=== PATIENT | female | born 1985 | race American Indian/Alaskan Native ===

== ENCOUNTER 2016-05-15 17:38 | Outpatient (CLI) | payer MEDICAID ==
[2016-05-15 19:17] VITALS: BP 118/72
== END 2016-05-15 19:49 | disposition home or self-care (01) ==
LOC: TRG 17:38
PROVIDERS: ATTEND Obstetrics & Gynecology
DX: O77.9 Labor and delivery complicated by fetal stress, unspecified (principal); O47.1 False labor at or after 37 completed weeks of gestation; Z3A.37 37 weeks gestation of pregnancy

== ENCOUNTER 2016-05-29 02:37 | Inpatient (IN) | payer MEDICAID ==
[2016-05-29] MEDS ORDERED: BRETHINE IVP PRN (03:18)
[2016-05-29] MEDS ORDERED: POLYCILLIN/NS 2 GM/100 ML 2 GM/100 ML BAG IV ONE (03:18)
[2016-05-29] MEDS ORDERED: ePHEDrine SULFATE IV PRN (03:18)
[2016-05-29] MEDS ORDERED: BRETHINE SUB-Q PRN (03:18)
[2016-05-29] MEDS ORDERED: MINERAL OIL PO PRN (03:18)
[2016-05-29] MEDS ORDERED: LACTATED RINGERS 1,000 ML IV SCH (04:00)
[2016-05-29 04:45] LABS: Hematocrit 41.5 % (30.3-42.9); Hemoglobin 13.2 gm/dl (10.1-14.3); Mean Corpuscular HGB Conc 32 % (30-34); Mean Corpuscular Hemoglobin 26 pg (28-32); Mean Corpuscular Volume 83 fl (79-97); Platelet Count 223 K/mm3 (140-440); Red Blood Count 5.02 M/mm3 (3.65-5.03); Red Cell Distribution Width 17.1 % (13.2-15.2)
[2016-05-29] MEDS: SUBLIMAZE IV PRN ×2 (05:10→06:34)
--- NOTE | 2016-05-29 06:46 | History and Physical Report ---
History of Present Illness Date of examination: 05/29/16 Date of admission: 05/29/16 04:36 Chief complaint: My water broke and I am having contractions History of present illness: 31 yo , now 39 + weeks presents in active labor with SROM at 0200. records not available. HX of CHTN but not on meds with this . States she is GBS+. Past History Past Medical History: hypertension Past Surgical History: no surgical history Social history: no significant social history - Obstetrical History Expected Date of Delivery: 05/30/16 Actual Gestation: 39 Week(s) 6 Day(s) : 5 Para: 2 Hx # Term Pregnancies: 2 Number of Living Children: 2 Medications and Allergies Allergies Allergy/AdvReac Type Severity Reaction Status Date / Time No Known Allergies Allergy Unverified 05/29/16 02:55 Home Medications Medication Instructions Recorded Confirmed Last Taken Type No Known Home Medications [No 05/29/16 05/29/16 Unknown History Reported Home Medications] Active Meds: Active Medications Fentanyl (Sublimaze) 100 mcg IV Q2H PRN PRN Reason: Labor Pain Last Admin: 05/29/16 06:34 Dose: 100 mcg Ampicillin Sodium (Polycillin/Ns 1 Gm/50 Ml) 1 gm in 50 mls @ 100 mls/hr IV Q4HR JEFF PRN Reason: Protocol Lactated Ringer's (Lactated Ringers) 1,000 mls @ 125 mls/hr IV DIRECT JEFF Last Admin: 05/29/16 04:46 Dose: 125 mls/hr Oxytocin/Sodium Chloride (Pitocin/Ns 20 Unit/1000ml Drip) 20 unit in 1,000 mls @ 125 mls/hr IV DIRECT JEFF Mineral Oil (Mineral Oil) 30 ml PO QHS PRN PRN Reason: Constipation Review of Systems All systems: negative - Vital Signs Vital signs: Vital Signs Pulse Pulse Ox 88 96 05/29/16 02:53 05/29/16 02:53 Temp Pulse Resp BP Pulse Ox 98.1 F 86 20 119/63 93 05/29/16 04:48 05/29/16 06:38 05/29/16 06:34 05/29/16 06:30 05/29/16 06:38 - Physical Exam Breasts: Positive: deferred Cardiovascular: Regular rate Abdomen: Positive: soft Genitourinary (Female): Positive: normal external genitalia Vulva: both: normal Vagina: Positive: normal moisture Adnexa: both: normal - Obstetrical FHR: category 1 Uterine Contraction Monitor Mode: External Cervical Dilatation: 8 Cervical Effacement Percentage: 80 station: 0 Results Result Diagrams: 05/29/16 04:30 Abnormal lab results 05/29/16 Range/Units 04:30 WBC 16.0 H (4.5-11.0) K/mm3 MCH 26 L (28-32) pg RDW 17.1 H (13.2-15.2) % All other labs normal. Assessment and Plan A: Active labor @ 39+ weeks P: Expect
[2016-05-29] MEDS ORDERED: POLYCILLIN/NS 1 GM/50 ML 1 GM/50 ML BAG IV SCH (07:23)
[2016-05-29] MEDS ORDERED: METHERGINE IM ONE (07:24)
[2016-05-29] MEDS ORDERED: XYLOCAINE 2% INFILTRATI ONE (07:24)
[2016-05-29] MEDS: PITOCin/NS 20 UNIT/1000ML DRIP 20 UNIT/1,000 ML BAG IV SCH ×2 (07:25→08:45)
--- NOTE | 2016-05-29 07:48 | Procedure Note ---
OB Delivery Note - Delivery Date of Delivery: 05/29/16 Surgeon: DELIA OSORIO Estimated blood loss: 100cc - Vaginal Delivery presentation: vertex Delivery position: OA Intrapartum events: none Delivery induction: none Delivery monitor: external FHT, external uterine Route of delivery: Delivery placenta: spontaneous Delivery cord: true knot, 3 umbilical vessels Episiotomy: none Delivery laceration: 1st degree Delivery repair: vicryl Anesthesia: local Delivery comments: of a viable male 8# 10 oz on 05/29/16 @ 0717 over 1st degree laceration. Placenta delivered 3VCI. Laceration repaired under local anesthesia, with 3-0 vicryl. FF @ U-1, lochia small. Mother and baby doing well. - Infant A at 1 minute: 9 at 5 minutes: 9 Infant Gender: Male (8# 10 oz)
[2016-05-29] MEDS ORDERED: DERMOPLAST TP PRN (09:13)
[2016-05-29] MEDS ORDERED: PHENERGAN PO PRN (09:13)
[2016-05-29] MEDS ORDERED: BENADRYL PO PRN (09:13)
[2016-05-29] MEDS ORDERED: TUCKS PAD TP PRN (09:13)
[2016-05-29] MEDS ORDERED: MILK OF MAGNESIA PO PRN (09:13)
[2016-05-29] MEDS ORDERED: ZOFRAN IV PRN (09:13)
[2016-05-29] MEDS ORDERED: TYLENOL PO PRN (09:13)
[2016-05-29] MEDS ORDERED: LANSINOH TP PRN (09:13)
[2016-05-29] MEDS ORDERED: DULCOLAX PR PRN (09:13)
[2016-05-29] MEDS: NORCO 5/325 PO PRN (09:50)
[2016-05-29] MEDS ORDERED: SODIUM CHLORIDE FLUSH SYRINGE 10 ML IV NR (10:00)
[2016-05-29] MEDS: MOTRIN PO SCH ×2 (11:56→18:20)
[2016-05-29] MEDS ORDERED: FLUARIX QUAD 2016-2017(36 MOS+) IM ONE (19:18)
[2016-05-29] MEDS ORDERED: BOOSTRIX IM ONE (19:18)
[2016-05-29 21:43] LABS: Hematocrit 38.7 % (30.3-42.9); Hemoglobin 12.3 gm/dl (10.1-14.3)
[2016-05-30] MEDS: MOTRIN PO SCH ×4 (00:05→23:10)
[2016-05-30] MEDS ORDERED: BOOSTRIX IM ONE (06:05)
--- NOTE | 2016-05-30 10:27 | Progress Note ---
Assessment and Plan A: PPD1 Depo for contraception P: Routine PP care D/C home today Depo to be given before D/C Subjective - Subjective Date of service: 05/30/16 Principal diagnosis: PPD1 Patient reports: appetite normal, voiding normally, pain well controlled, ambulating normally : doing well Objective - Vital Signs Latest vital signs: Vital Signs Temp Pulse Resp BP 05/30/16 08:00 98.3 F 76 20 112/68 05/30/16 00:00 98.1 F 68 20 114/62 05/29/16 20:00 98.4 F 76 20 128/63 05/29/16 17:25 97.9 F 85 20 117/72 05/29/16 12:25 99.2 F 74 20 126/68 Intake and Output 05/29/16 05/30/16 05/30/16 22:59 06:59 14:59 Intake Total 325 240 120 Output Total 800 Balance -475 240 120 Intake: IV 325 PITOCin/NS 20 UNIT/1000ML 325 DRIP 20 unit In 1,000 ml @ 125 mls/hr IV DIRECT JEFF Rx#:[id number] Oral 240 Intake, Free Water 120 Output: Urine 800 Void 800 Other: Total, Intake Amount 240 Total, Output Amount 800 # Voids Void 1 1 - Exam Cardiovascular: Present: Regular rate Lungs: Present: Normal air movement Abdomen: Present: normal appearance, normal bowel sounds Uterus: Present: normal, firm, fundal height below umbilicus Extremities: Present: normal Deep Tendon Reflex Grade: Normal +2
--- NOTE | 2016-05-30 10:29 | Discharge Summary ---
Providers - Providers Date of Admission: 05/29/16 04:36 Date of discharge: 05/30/16 Attending physician: SHAWNEE AGUILA MD Primary care physician: SHAWNEE AGUILA MD Hospitalization Reason for admission: active labor Delivery: Laceration: 1st degree Discharge diagnosis: IUP at term delivered [place] baby: male Condition at discharge: Good Disposition: DISCHARGED TO HOME OR SELFCARE Plan - Provider Discharge Summary Activity: routine, no sex for 6 weeks, no heavy lifting 4 weeks, no strenuous exercise Diet: routine Instructions: routine Additional instructions: [] Smoking cessation referral if applicable(refer to patient education folder for contact #) [] Refer to [facility] Booklet Call your doctor immediately for: * Fever > 100.5 * Heavy vaginal bleeding ( >1 pad per hour) * Severe persistent headache * Shortness of breath * Reddened, hot, painful area to leg or breast * Drainage or odor from incision. * Keep incision clean and dry at all times and follow doctor's instructions regarding bathing/showering - Follow up plan Follow up: [facility] [Provider Group] - 6 Weeks
[2016-05-30] MEDS ORDERED: DEPO-PROVERA (CONTRACEPTION) IM NR (10:30)
[2016-05-30] MEDS: NORCO 5/325 PO PRN (15:17)
[2016-05-31] MEDS: MOTRIN PO SCH (05:16)
[2016-05-31 11:59] VITALS: BP 114/71
[2016-05-31] MEDS ORDERED: DEPO-PROVERA (CONTRACEPTION) IM ONE (12:00)
== END 2016-05-31 12:10 | disposition home or self-care (01) | DRG 775 ==
LOC: TRG 02:37 → LD 04:36 → OB 09:35
PROVIDERS: ADMIT Obstetrics & Gynecology; ATTEND Obstetrics & Gynecology
PROC: 0HQ9XZZ Repair Perineum Skin, External Approach (ICD-10-PCS; principal; 2016-05-29)
PROC: 10E0XZZ Delivery of Products of Conception, External Approach (ICD-10-PCS; 2016-05-29)
DX: O42.02 Full-term premature rupture of membranes, onset of labor within 24 hours of rupture (principal); O16.4 Unspecified maternal hypertension, complicating childbirth; Z3A.39 39 weeks gestation of pregnancy; O70.0 First degree perineal laceration during delivery; Z37.0 Single live birth; O99.824 Streptococcus B carrier state complicating childbirth; O69.2XX0 Labor and delivery complicated by other cord entanglement, with compression, not applicable or unspecified
CPT/HCPCS: 36415; 85014; 85018; 85027; 86850; 86900; 86901; 90471; 90686; 90715; 99211; A6250; G0463; J0290; J1050; J2210; J2590; J3010; J7120; Q0169

== ENCOUNTER 2016-06-04 12:19 | Emergency (ER) | payer MEDICAID ==
[2016-06-04 16:48] LABS: Bacteria,Urine 1+ /HPF (Negative); Bilirubin,Urine NEG (Negative); Blood,Urine LG (Negative); Ketones,Urine NEG (Negative); Leukocyte Esterase,Urine MOD (Negative); Mucus,Urine FEW /HPF; Nitrite,Urine NEG (Negative); Protein,Urine <15 mg/dL mg/dL (Negative); Urobilinogen,Urine < 2.0 mg/dL (<2.0)
[2016-06-04] MEDS ORDERED: TORADOL IM ONE (16:49)
--- NOTE | 2016-06-04 16:53 | Emergency Department Report ---
HPI - General Chief Complaint: Back Pain/Injury Time Seen by Provider: 06/04/16 16:46 - HPI HPI: 31 y/o female complain of low back pain x 3 days.pt state she had a baby times x 6 days ago and current on menstrual cycle.pt state she was trying to breast feed and stop because of soreness to breast . ED Past Medical Hx - Past Medical History Hx Hypertension: No Hx Congestive Heart Failure: No Hx Diabetes: No Hx Deep Vein Thrombosis: No Hx Renal Disease: No Hx Sickle Cell Disease: No Hx Seizures: No Hx Asthma: No Hx COPD: No Hx HIV: No - Social History Smoking Status: Never Smoker - Medications Home Medications: Home Medications Medication Instructions Recorded Confirmed Last Taken Type Acetaminophen/Codeine [Tylenol #3] 1 tab PO Q4HR PRN #15 tablet 06/04/16 Unknown Rx Nitrofurantoin [place]/M-Cryst 100 mg PO Q12HR #14 capsule 06/04/16 Unknown Rx [Macrobid CAP] ED Review of Systems ROS: Stated complaint: BACK PAIN Other details as noted in HPI Constitutional: fever. denies: chills Eyes: denies: eye pain, eye discharge, vision change ENT: denies: ear pain, throat pain Respiratory: denies: cough, shortness of breath, wheezing Cardiovascular: denies: chest pain, palpitations Endocrine: no symptoms reported Gastrointestinal: denies: abdominal pain, nausea, diarrhea Genitourinary: dysuria. denies: urgency, discharge Musculoskeletal: back pain. denies: joint swelling, arthralgia Skin: denies: rash, lesions Neurological: denies: headache, weakness, paresthesias Psychiatric: denies: anxiety, depression Hematological/Lymphatic: denies: easy bleeding, easy bruising Physical Exam - Physical Exam Vital Signs: Vital Signs 06/04/16 13:32 Temperature 100.1 F H Pulse Rate 89 Respiratory 20 Rate Blood Pressure 147/78 O2 Sat by Pulse 99 Oximetry Physical Exam: GENERAL: The patient is well-developed and well-nourished. Patient is in NAD. HENT: Normocephalic. Atraumatic. Patient has moist mucous membranes. Throat: No erythema, swelling or exudates. Ears:Tympanic membranes pearly espinoza ,intact , and free of exudate and erythema . EYES: Extraocular motions are intact, PERRL NECK: Supple. No meningitic signs are noted. There is no adenopathy noted. CHEST/LUNGS: Clear to auscultation bilaterally. No wheezing, rales or rhonchi noted. There is no respiratory distress noted.Breast engorgement bilateral HEART/CARDIOVASCULAR: Regular rate and rhythm. Normal S1 S2. No murmurs, rubs , clicks, or gallops. ABDOMEN: Abdomen is soft, nontender.. Bowel sounds normoactive. There is no abdominal distention. Negative rebound tenderness. : Deferred. SKIN: There is no rash. There is no edema. There is no diaphoresis.Normal skin turgor NEURO: The patient is A&Ox3. The patient has no focal neurologic deficits. MUSCULOSKELETAL: There is no tenderness or deformity. There is no limitation range of motion. posture erect.Spine aligned,no deformities. PSYCH: Pt has appropriate mood and affect. ED Course Vital Signs 06/04/16 13:32 Temperature 100.1 F H Pulse Rate 89 Respiratory 20 Rate Blood Pressure 147/78 O2 Sat by Pulse 99 Oximetry ED Medical Decision Making - Lab Data Abnormal Lab Results 06/04/16 15:55 Urine Color Yellow Urine Turbidity Clear Urine pH 6.0 Ur Specific [place] 1.019 Urine Protein <15 mg/dl Urine Glucose (UA) Neg Urine Ketones Neg Urine Blood Lg Urine Nitrite Neg Urine Bilirubin Neg Urine Urobilinogen < 2.0 Ur Leukocyte Esterase Mod Urine WBC (Auto) 13.0 H Urine RBC (Auto) 89.0 U Epithel Cells (Auto) 1.0 Urine Bacteria (Auto) 1+ Urine Mucus Few - Medical Decision Making Urinary tract infection Mastitis Critical care attestation.: If time is entered above; I have spent that time in minutes in the direct care of this critically ill patient, excluding procedure time. ED Disposition Clinical Impression: Mastitis Urinary tract infection Qualifiers: Urinary tract infection type: site unspecified Hematuria presence: with hematuria Qualified Code(s): N39.0 - Urinary tract infection, site not specified Disposition: DISCHARGED TO HOME OR SELFCARE Is pt being admited?: No Does the pt Need Aspirin: No Condition: Stable Instructions: Mastitis (ED), Urinary Tract Infection in Women (ED) Additional Instructions: apply warm compress to each breast and manually compress nipples follow with [facility] Prescriptions: Acetaminophen/Codeine [Tylenol #3] 1 tab PO Q4HR PRN #15 tablet PRN Reason: Pain Nitrofurantoin [place]/M-Cryst [Macrobid CAP] 100 mg PO Q12HR #14 capsule Referrals: PRIMARY CARE,MD [Primary Care Provider] - 3-5 Days Time of Disposition: 17:12
[2016-06-04 17:24] VITALS: BP 148/81
== END 2016-06-04 17:22 | disposition home or self-care (01) ==
LOC: ED 12:19
DX: N39.0 Urinary tract infection, site not specified (principal); N61.0 Mastitis without abscess
CPT/HCPCS: 81001; 96372; 99282; J1885